=== PATIENT | male | born 1970 | race Caucasian/White ===

== ENCOUNTER 2023-01-08 11:06 | Emergency (ER) | payer OTHER ==
[~2023-01-08] VITALS: Ht 185.4 cm; Wt 117.9 kg
[2023-01-08 11:11] VITALS: BP 154/93
== END 2023-01-08 13:15 | disposition home or self-care (01) ==
LOC: ER 11:06
DX: R51.9 Headache, unspecified (principal); Z88.5 Allergy status to narcotic agent
CPT/HCPCS: 96374; 96375; 99283-25; A9270; J0780; J1200; J1885; J2405